=== PATIENT | female | born 1950 | race Caucasian/White ===

== ENCOUNTER 2018-06-23 16:59 | Emergency (ER) | payer MEDICARE, BC ==
[~2018-06-23] VITALS: Ht 172.7 cm; Wt 53.2 kg
[~2018-06-23 16:59] MED LIST: ADVAIR 500/28 DISKU1 IH; COUMADIN; METOPROLOL50 MG PO; VENTOLIN0.09 MG IH; [UNRECOGNIZED DRUG - REMARK]
[2018-06-23 17:05] VITALS: TEMP 97.6
[2018-06-23 17:28] LABS: BASO % 0.7 % (0.0-2.0); EOS # 0.4 (0.0-0.7); EOS % 9.4 % (0-4.0); GRAN # 1.9 (1.4-6.5); GRAN % 42.8 % (42.2-75.2); HEMATOCRIT 43.2 % (37.0-47.0); HEMOGLOBIN 13.9 g/dl (12.5-16.0); LYMPH # 1.6 (1.2-3.4); LYMPH % 35.5 % (20.0-51.0); MEAN CELL VOLUME 93 fl (80.0-100.0); MEAN CORPUSCULAR HEMOGLOBIN 30 pg (27.0-31.0); MEAN CORPUSCULAR HGB CONC 32 g/dl (33.0-37.0); MEAN PLATELET VOLUME 9.7 fl (7.4-10.4); MONO # 0.5 (0.1-0.6); MONO % 11.4 % (1.7-9.3); PLATELET COUNT 178 K/mm3 (130-400); RED BLOOD COUNT 4.63 M/mm3 (4.10-5.30); REDCELL DISTRIBUTION WIDTH-CV 13.2 % (11.5-14.5)
[2018-06-23] MEDS ORDERED: TYLENOL 325MG325 MG PO (17:28)
[2018-06-23] MEDS ORDERED: AMOXICILLIN 50500 MG PO (17:29)
[2018-06-23] MEDS ORDERED: ALBUTEROL0.83 MG/ML IH (17:29)
[2018-06-23] MEDS ORDERED: FISH OIL 1000MG1 CAP PO (17:30)
[2018-06-23] MEDS ORDERED: KLONOPIN 1MG1 MG PO (17:30)
[2018-06-23] MEDS ORDERED: BREO IH (17:30)
[2018-06-23] MEDS ORDERED: TAPAZOLE5 MG PO (17:31)
[2018-06-23] MEDS ORDERED: TOPROL XL 25MG25 MG PO (17:31)
[2018-06-23] MEDS ORDERED: FEMARA PO (17:31)
[2018-06-23] MEDS ORDERED: PROAIR HFA0.09 MG/AC IH (17:32)
[2018-06-23] MEDS ORDERED: ZOFRAN 4MG T4 MG/TAB PO (17:32)
[2018-06-23] MEDS ORDERED: CRESTOR 10MG10 MG PO (17:32)
[2018-06-23 17:33] LABS: INR 3.8 (0.8-3.0); PROTHROMBIN TIME 43.4 SECONDS (9.7-12.8)
[2018-06-23] MEDS ORDERED: EFFEXOR-XR150 MG PO (17:33)
[2018-06-23 17:36] LABS: PARTIAL THROMBOPLASTIN TIME 49.6 SECONDS (26.0-37.0)
[2018-06-23 17:38] LABS: ALANINE AMINOTRANSFERASE 43 U/L (9-52); ALBUMIN 3.9 gm/dL (3.5-5.0); ALKALINE PHOSPHATASE 68 U/L (50-136); ANION GAP 8 mmol/L (7-16); AST,SGOT 43 U/L (15-37); BILIRUBIN,TOTAL 0.4 mg/dL (0.0-1.0); BLOOD UREA NITROGEN 17 mg/dL (7-17); CARBON DIOXIDE 31 mmol/L (22-30); CHLORIDE 101 mmol/L (98-107); GLUCOSE 72 mg/dL (74-106); SODIUM 140 mmol/L (137-145); TOTAL PROTEIN 7.1 gm/dL (6.4-8.2)
[2018-06-23 17:49] LABS: TROPONIN-I < 0.012 ng/mL (0.000-0.034)
[2018-06-23 20:10] VITALS: BP 103/79; PULSE 80
== END 2018-06-23 20:10 | disposition home or self-care (01) ==
LOC: COL.ER 16:59
PROVIDERS: Family Medicine
DX: R55 Syncope and collapse (principal); N28.1 Cyst of kidney, acquired; R00.2 Palpitations; Q87.40 Marfan syndrome, unspecified; Z79.51 Long term (current) use of inhaled steroids
CPT/HCPCS: J2405; Q9967